=== PATIENT | male | born 1970 | race Caucasian/White ===

== ENCOUNTER 2023-05-05 08:49 | Inpatient (IN) ==
[2023-05-05] MEDS ORDERED: SODIUM CHLORIDE 0.9% 500 ML IV ONE (09:10)
--- NOTE | 2023-05-05 09:20 | Emergency Department Note ---
Impression & Plan Right arm weakness ADMIT ED Provider Note HPI: The patient is a 52-year-old male with history of hyperlipidemia, gout, who presents emergency department with chief complaint of right upper extremity weakness that is been ongoing since 3 PM yesterday. Patient states that he was using his phone yesterday at about 3 PM when he noticed that he had weakness in his hand and was having trouble using his thumb. He states he then experienced some mild weakness in his entire right upper extremity that has been constant since 3 PM yesterday. Patient states he thought it would probably go away therefore did not seek emergency medical care yesterday. On arrival here to the ED the patient is in no acute distress, he states his symptoms have not changed much at all since yesterday. He is hypertensive on arrival but otherwise hemodynamically stable. ROS: - Per HPI Differential Diagnosis: Acute ischemic stroke, neuropathy, radiculopathy, hemorrhagic stroke, hypertensive emergency, amongst other potential pathologies. *Outpatient medications and allergy history reviewed. *Pertinent external medical records reviewed. PE: General: Alert HEENT: Normocephalic, trachea midline Eyes: Extraocular eye movement is intact, no scleral erythema Pulmonary: Clear to auscultation bilaterally, no wheezing Cardio: Regular rate and rhythm GI: Abdomen is soft to palpation : No suprapubic tenderness MSK: No evidence of trauma or malformation of the extremities, no edema Skin: No evidence of rash Neuro: Alert, there is mild drift of the right upper extremity with testing against gravity, otherwise no focal deficits are noted Psychiatric: Cooperative equipment monitor phototypesetting: (As interpreted by myself): - An order was placed for continuous cardiac monitoring - Patient was noted to be in sinus rhythm with a rate of 80 EKG: (As interpreted by myself): Rate: 70 Rhythm: Normal sinus rhythm Intervals: Within normal limits ST changes: No ST elevation Time: 0859 Interventions provided in ED: -Normal saline bolus, IV labetalol, asked NIH STROKE SCALE: 1A: Level of consciousness Alert; keenly responsive 0 1B: Ask month and age Both questions right 0 1C: 'Blink eyes' & 'squeeze hands' Performs both tasks 0 2: Horizontal extraocular movements Normal 0 3: Visual donaldson No visual loss 0 4: Facial palsy Normal symmetry 0 5A: Left arm motor drift No drift for 10 seconds 0 5B: Right arm motor drift +1 6A: Left leg motor drift No drift for 5 seconds 0 6B: Right leg motor drift 0 7: Limb Ataxia No ataxia 0 8: Sensation Normal; no sensory loss 0 9: Language/aphasia Normal; no aphasia 0 10: Dysarthria Normal 0 11: Extinction/inattention No abnormality 0 TOTAL NIH SCORE =1 Medical Decision Making: Patient presented to the emergency department with right upper extremity weakness. He is outside the window for tPA. He otherwise appears to be in no acute distress but he is hypertensive on arrival. IV was established and lab work obtained, patient was placed on diagnostic cardiac sonographer. Lab work shows no leukocytosis, hemoglobin is stable, platelet count is normal, CMP does not show any critical findings, no evidence of endorgan damage, no acute kidney injury, troponin is negative. EKG reviewed by myself shows evidence of sinus rhythm with a rate of 70 without any acute ischemic changes. CT imaging of the head and CT angiography were obtained and did not show any evidence of large vessel occlusion. Patient was given a dose of IV labetalol here in the ED for hypertension that did at times go above 200 systolic, on repeat blood pressure patient's systolic pressures improved to 168. Patient tells me he does not take any medications for his blood pressure. He is given a n NIH stroke scale of 1, I feel he should be admitted for secondary work-up and MRI imaging of the brain as I do have concern his right upper extremity weakness could be secondary to an ischemic stroke. Patient is in agreement to this plan, he was given aspirin here in the ED. Case was discussed with the on-call hospitalist service for [facility], case was discussed with Adeline Pappas NP, and the patient was accepted to the inpatient service of Dr. Holder. Consultants: Hospitalist service, Dr. Holder Disposition discussion held by myself with: Patient Diagnosis: 1. Right upper extremity weakness, acute 2. Strokelike symptoms, acute 3. Hypertensive urgency, acute Disposition: Admission Addison Alas DO Emergency Medicine Past Med/Surg History Medical History Hx of gout Hx of shortness of breath "have had this since I was a kid, happens alot when i walk uphill, or exhertion" no inh. 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 Beliefs That Will Affect Care: None Current Living Situation: Spouse and Family Feels Safe at Home: Yes Assistive Devices: Glasses Allergies Allergies Allergy/AdvReac Type Severity Reaction Status Date / Time No Known Drug Allergies Allergy Verified 05/30/22 11:53 Home Meds Home Medications Medication Instructions Recorded Confirmed allopurinol 300 mg tablet 450 mg PO DAILY 05/05/23 05/05/23 indomethacin 25 mg capsule 25 mg PO BID 05/05/23 05/05/23 pravastatin 40 mg tablet 40 mg PO DAILY 05/05/23 05/05/23 Results & Data (ED) Vital Signs Vital Signs - 24 hr 05/05/23 08:53 05/05/23 09:25 05/05/23 09:17 Temperature 36.8 C Temperature Source Temporal Artery Scan Pulse Rate 78 78 77 Pulse Rate [Left Finger] Pulse Rate from SpO2 Sensor Pulse Rhythm Regular Pulse Rhythm [Left Finger] Pulse Strength [Left Finger] Respiratory Rate 20 19 Respiratory Effort / Characteristics Non-Labored Spontaneous Respiratory Depth Normal Respiratory Pattern Blood Pressure 193/117 H Blood Pressure [Left Arm] Blood Pressure Mean 142 Blood Pressure Mean [Left Arm] Blood Pressure Position [Left Arm] Pulse Oximetry 98 Oxygen Delivery Method Room Air Sepsis Recent Fever Within 48 Hours No Sepsis New/Unexplained Change in Mental Status No Sepsis Action Taken by Nursing No Action Required 05/05/23 09:20 05/05/23 09:22 05/05/23 09:22 Temperature Temperature Source Pulse Rate 73 74 Pulse Rate [Left Finger] Pulse Rate from SpO2 Sensor 73 Pulse Rhythm Pulse Rhythm [Left Finger] Pulse Strength [Left Finger] Respiratory Rate 20 16 Respiratory Effort / Characteristics Respiratory Depth Respiratory Pattern Blood Pressure 185/109 H Blood Pressure [Left Arm] Blood Pressure Mean 134 Blood Pressure Mean [Left Arm] Blood Pressure Position [Left Arm] Pulse Oximetry 97 Oxygen Delivery Method Sepsis Recent Fever Within 48 Hours Sepsis New/Unexplained Change in Mental Status Sepsis Action Taken by Nursing 05/05/23 09:30 05/05/23 10:42 05/05/23 10:46 Temperature Temperature Source Pulse Rate 75 75 Pulse Rate [Left Finger] 71 Pulse Rate from SpO2 Sensor 76 Pulse Rhythm Pulse Rhythm [Left Finger] Regular Pulse Strength [Left Finger] Normal Respiratory Rate 16 20 Respiratory Effort / Characteristics Non-Labored Spontaneous Respiratory Depth Normal Respiratory Pattern Regular Blood Pressure 210/133 H Blood Pressure [Left Arm] 210/133 H Blood Pressure Mean Blood Pressure Mean [Left Arm] 158 Blood Pressure Position [Left Arm] Sitting Pulse Oximetry 98 98 Oxygen Delivery Method Room Air Sepsis Recent Fever Within 48 Hours Sepsis New/Unexplained Change in Mental Status Sepsis Action Taken by Nursing Laboratory Data 05/05/23 09:20 05/05/23 09:20 Lab Results 05/05/23 05/05/23 05/05/23 Range/Units 09:20 09:20 09:20 WBC 6.63 (4.8-10.8) K/ul RBC 4.48 L (4.70-6.10) M/uL Hgb 14.2 (14.0-18.0) g/dl Hct 40.7 L (42.0-52.0) % MCV 90.8 (80.0-100.0) fL MCH 31.7 (25.0-34.0) pg MCHC 34.9 (32.0-36.0) g/dL RDW Std Deviation 41.3 (36.4-46.3) fL RDW Coeff of Karen 12.5 (11.5-14.5) % Plt Count 296 (130-400) K/uL MPV 8.6 L (9.4-12.4) fL Immature Gran % (Auto) 0.2 % Neut % (Auto) 54.9 % Lymph % (Auto) 32.7 % Blount % (Auto) 8.0 % Eos % (Auto) 3.3 % Baso % (Auto) 0.9 % Neut # (Auto) 3.64 (1.40-6.50) K/uL Lymph # (Auto) 2.17 (1.2-3.4) K/uL Blount # (Auto) 0.53 (0.11-0.59) K/uL Eos # (Auto) 0.22 (0-0.50) K/uL Baso # (Auto) 0.06 (0-0.2) K/uL Immature Gran # (Auto) 0.01 (0.01-0.20) K/uL PT 10.2 (9.0-12.0) Seconds INR 0.9 (0.9-1.1) APTT 27.6 (21.0-31.0) Seconds PTT Ratio 1.0 Sodium 140 (136-145) mmol/L Potassium 4.3 (3.5-5.1) mmol/L Chloride 105 (98-107) mmol/L Carbon Dioxide 28 (21-32) mmol/L Anion Gap 7 (3-11) BUN 9 (6-23) mg/dl Creatinine 0.91 (0.6-1.4) mg/dl Est Cr Clr Drug Dosing 122.0 ml/min Est GFR ( Amer) 110.3 ml/min Est GFR (Non-Af Amer) 95.2 ml/min BUN/Creatinine Ratio 9.9 L (10-20) Glucose 145 H (70-99(Fasting)) mg/dl Calcium 9.5 (8.6-10.3) mg/dl Magnesium 2.1 (1.7-2.4) mg/dl Total Bilirubin 0.3 (0.2-1.0) mg/dl AST 16 (13-39) U/L ALT 19 (7-52) U/L Alkaline Phosphatase 74 (34-104) U/L Troponin I High Sens 6.2 (0-20) pg/ml Total Protein 7.3 (6.0-8.3) gm/dl Albumin 4.1 (3.4-5.0) gm/dl Globulin 3.2 (2.5-4.0) gm/dl Albumin/Globulin Ratio 1.3 (0.9-2) Administered Medications Discontinued Medications Sodium Chloride (Nss) 500 mls @ 999 mls/hr IV .Q31M ONE Stop: 05/05/23 09:40 Last Infusion: 05/05/23 10:55 Dose: 0 mls/hr Documented By: Admin: 05/05/23 09:24 Dose: 999 mls/hr Documented By: SERA Ioversol (Ioversol 350 Mg 125ml Prefilled Syringe) 119 ml IV ONCE ONE Stop: 05/05/23 10:12 Last Admin: 05/05/23 10:11 Dose: 119 ml Documented By: NENA Labetalol HCl (Labetalol Hcl Iv 5 Mg/Ml 20ml) 10 mg IV NOW STA Stop: 05/05/23 10:45 Last Admin: 05/05/23 10:46 Dose: 10 mg Documented By: SERA Co-signed By: LOUIE Imaging Data Radiologist's Impression: Head CT 05/05/23 09:[address] OF THE BRAIN; CT ANGIOGRAM OF THE BRAIN; CT ANGIOGRAM OF THE NECK CLINICAL HISTORY: Neurological deficit. Stroke like symptoms. COMPARISON STUDY: No priors. TECHNIQUE: Unenhanced axial CT scan of the brain is performed. Subsequently, following the IV administration of 119 of Optiray 350, CT angiogram of the head and neck was performed from the aortic arch to the vertex. Images are reviewed in the axial, sagittal, and coronal planes. 3-D MIPS images are created and assessed. IV contrast was administered without complication. All measurements were calculated based on NASCET criteria. A dose lowering technique was utilized adhering to the principles of ALARA. CT DOSE: 1177.28 mGy.cm FINDINGS: Brain parenchyma: There is minimal microangiopathic change. There is no hemorrh age, mass effect, or evidence of acute territorial ischemia by CT criteria. There is no evidence of enhancing mass lesion on the angiogram phase images. The ventricles, sulci, and cisterns are normal in configuration. Peoples-white matter differentiation is preserved. No extra-axial fluid collection is seen. Thoracic aorta: Visualized portions of the thoracic aorta are normal in caliber. The aortic arch demonstrates standard 3-vessel anatomy. Right carotid arterial system: The right common carotid artery is widely patent, as are the right internal and external carotid artery. Mild calcified plaque is seen in the carotid bulb. Left carotid arterial system: The left common carotid artery is widely patent, as are the left internal and external carotid arteries. Mild calcified plaque is seen in the carotid bulb. Vertebral arteries: The vertebral arteries are widely patent bilaterally and co dominant. The right vertebral artery is diminutive. Subclavian arteries: Widely patent bilaterally. Intracranial vasculature: The internal carotid arteries are patent at the skull base, as are the anterior and middle cerebral arteries bilaterally. The vertebrobasilar system and posterior cerebral arteries are widely patent. The left vertebral artery is dominant. There is no aneurysm, high-grade stenosis, or focal vessel cut off seen throughout the intracranial circulation. Jugular veins: Patent bilaterally. Dural sinuses: Patent. Lung apices: Partially visualized upper lobe lung parenchyma appears clear. Soft tissues: The visualized pharyngeal soft tissues are normal in appearance noting angiographic phase technique. The oropharyngeal airway appears widely patent. The salivary and thyroid glands are normal in appearance. No cervical lymphadenopathy is seen. Skeletal structures: The calvarium appears intact. The cervical spine is within normal limits. Orbits: The bony orbits are intact. Orbital contents are normal as visualized. Sinuses and mastoids: The paranasal sinuses are clear. The mastoid air cells are well pneumatized. Dentition: There are numerous dental caries. A large periapical lucency is seen involving a left mandibular molar with overlying cortical breakthrough. IMPRESSION: 1. There is no hemorrhage, mass effect, or evidence of acute territorial ischemia by CT criteria. 2. Unremarkable CT angiogram of the brain. 3. Unremarkable CT angiogram of the neck. 4. Periodontal disease as above. Follow-up with dentistry is recommended. ACT 112: Negative or not required by law. Electronically signed by: Callum Samaniego M.D. 05/05/2023 10:25 AM Head CTA 05/05/23 09:[address] OF THE BRAIN; CT ANGIOGRAM OF THE BRAIN; CT ANGIOGRAM OF THE NECK CLINICAL HISTORY: Neurological deficit. Stroke like symptoms. COMPARISON STUDY: No priors. TECHNIQUE: Unenhanced axial CT scan of the brain is performed. Subsequently, fo llowing the IV administration of 119 of Optiray 350, CT angiogram of the head and neck was performed from the aortic arch to the vertex. Images are reviewed in the axial, sagittal, and coronal planes. 3-D MIPS images are created and assessed. IV contrast was administered without complication. All measurements were calculated based on NASCET criteria. A dose lowering technique was utilized adhering to the principles of ALARA. CT DOSE: 1177.28 mGy.cm FINDINGS: Brain parenchyma: There is minimal microangiopathic change. There is no hemorrhage, mass effect, or evidence of acute territorial ischemia by CT criteria. There is no evidence of enhancing mass lesion on the angiogram phase images. The ventricles, sulci, and cisterns are normal in configuration. Peoples- white matter differentiation is preserved. No extra-axial fluid collection is seen. Thoracic aorta: Visualized portions of the thoracic aorta are normal in caliber. The aortic arch demonstrates standard 3-vessel anatomy. Right carotid arterial system: The right common carotid artery is widely patent, as are the right internal and external carotid artery. Mild calcified plaque is seen in the carotid bulb. Left carotid arterial system: The left common carotid artery is widely patent, as are the left internal and external carotid arteries. Mild calcified plaque is seen in the carotid bulb. Vertebral arteries: The vertebral arteries are widely patent bilaterally and codominant. The right vertebral artery is diminutive. Subclavian arteries: Widely patent bilaterally. Intracranial vasculature: The internal carotid arteries are patent at the skull base, as are the anterior and middle cerebral arteries bilaterally. The vertebrobasilar system and posterior cerebral arteries are widely patent. The left vertebral artery is dominant. There is no aneurysm, high-grade stenosis, or focal vessel cut off seen throughout the intracranial circulation. Jugular veins: Patent bilaterally. Dural sinuses: Patent. Lung apices: Partially visualized upper lobe lung parenchyma appears clear. Soft tissues: The visualized pharyngeal soft tissues are normal in appearance noting angiographic phase technique. The oropharyngeal airway appears widely patent. The salivary and thyroid glands are normal in appearance. No cervical lymphadenopathy is seen. Skeletal structures: The calvarium appears intact. The cervical spine is within normal limits. Orbits: The bony orbits are intact. Orbital contents are normal as visualized. Sinuses and mastoids: The paranasal sinuses are clear. The mastoid air cells are well pneumatized. Dentition: There are numerous dental caries. A large periapical lucency is seen involving a left mandibular molar with overlying cortical breakthrough. IMPRESSION: 1. There is no hemorrhage, mass effect, or evidence of acute territorial ischemia by CT criteria. 2. Unremarkable CT angiogram of the brain. 3. Unremarkable CT angiogram of the neck. 4. Periodontal disease as above. Follow-up with dentistry is recommended. ACT 112: Negative or not required by law. Electronically signed by: Callum Samaniego M.D. 05/05/2023 10:25 AM Neck CTA 05/05/23 09:[address] OF THE BRAIN; CT ANGIOGRAM OF THE BRAIN; CT ANGIOGRAM OF THE NECK CLINICAL HISTORY: Neurological deficit. Stroke like symptoms. COMPARISON STUDY: No priors. TECHNIQUE: Unenhanced axial CT scan of the brain is performed. Subsequently, following the IV administration of 119 of Optiray 350, CT angiogram of the head and neck was performed from the aortic arch to the vertex. Images are reviewed in the axial, sagittal, and coronal planes. 3-D MIPS images are created and assessed. IV contrast was administered without complication. All measurements were calculated based on NASCET criteria. A dose lowering technique was utilized adhering to the principles of ALARA. CT DOSE: 1177.28 mGy.cm FINDINGS: Brain parenchyma: There is minimal microangiopathic change. There is no hemorrhage, mass effect, or evidence of acute territorial ischemia by CT criteria. There is no evidence of enhancing mass lesion on the angiogram phase images. The ventricles, sulci, and cisterns are normal in configuration. Peoples- white matter differentiation is preserved. No extra-axial fluid collection is seen. Thoracic aorta: Visualized portions of the thoracic aorta are normal in caliber. The aortic arch demonstrates standard 3-vessel anatomy. Right carotid arterial system: The right common carotid artery is widely patent, as are the right internal and external carotid artery. Mild calcified plaque is seen in the carotid bulb. Left carotid arterial system: The left common carotid artery is widely patent, as are the left internal and external carotid arteries. Mild calcified plaque is seen in the carotid bulb. Vertebral arteries: The vertebral arteries are widely patent bilaterally and codominant. The right vertebral artery is diminutive. Subclavian arteries: Widely patent bilaterally. Intracranial vasculature: The internal carotid arteries are patent at the skull base, as are the anterior and middle cerebral arteries bilaterally. The vertebrobasilar system and posterior cerebral arteries are widely patent. The left vertebral artery is dominant. There is no aneurysm, high-grade stenosis, or focal vessel cut off seen throughout the intracranial circulation. Jugular veins: Patent bilaterally. Dural sinuses: Patent. Lung apices: Partially visualized upper lobe lung parenchyma appears clear. Soft tissues: The visualized pharyngeal soft tissues are normal in appearance noting angiographic phase technique. The oropharyngeal airway appears widely patent. The salivary and thyroid glands are normal in appearance. No cervical lymphadenopathy is seen. Skeletal structures: The calvarium appears intact. The cervical spine is within normal limits. Orbits: The bony orbits are intact. Orbital contents are normal as visualized. Sinuses and mastoids: The paranasal sinuses are clear. The mastoid air cells are well pneumatized. Dentition: There are numerous dental caries. A large periapical lucency is seen involving a left mandibular molar with overlying cortical breakthrough. IMPRESSION: 1. There is no hemorrhage, mass effect, or evidence of acute territorial ischemia by CT criteria. 2. Unremarkable CT angiogram of the brain. 3. Unremarkable CT angiogram of the neck. 4. Periodontal disease as above. Follow-up with dentistry is recommended. ACT 112: Negative or not required by law. Electronically signed by: Callum Samaniego M.D. 05/05/2023 10:25 AM Discharge Plan Visit Data Chief Complaint: Arm Pain Stated Complaint: RIGHT ARM IS NMB FROM SHOULDER TO FINGERS ED Provider: Addison Alas Discharge Problem: Right arm weakness Forms Stand Alone Forms: [facility] Prescriptions Prescriptions: No Action pravastatin 40 mg tablet 40 mg PO DAILY indomethacin 25 mg capsule 25 mg PO BID allopurinol 300 mg tablet 450 mg PO DAILY Referrals Referrals: Anshu Coleman MD [Primary Care Provider] -
[2023-05-05 09:36] LABS: Basophils # (auto) 0.06 K/uL (0-0.2); Basophils % (auto) 0.9 %; Eosinophils # (auto) 0.22 K/uL (0-0.50); Eosinophils % (auto) 3.3 %; Hematocrit (blood only) 40.7 % (42.0-52.0); Hemoglobin 14.2 g/dl (14.0-18.0); Immature Granulocytes # (auto) 0.01 K/uL (0.01-0.20); Immature Granulocytes % (auto) 0.2 %; Lymphocytes # (auto) 2.17 K/uL (1.2-3.4); Lymphocytes % (auto) 32.7 %; Mean Corpuscular Hemoglobin 31.7 pg (25.0-34.0); Mean Corpuscular Hgb Conc 34.9 g/dL (32.0-36.0); Mean Corpuscular Volume 90.8 fL (80.0-100.0); Mean Platelet Volume 8.6 fL (9.4-12.4); Monocytes # (auto) 0.53 K/uL (0.11-0.59); Neutrophils # (auto) 3.64 K/uL (1.40-6.50); Neutrophils % (auto) 54.9 %; Platelet Count 296 K/uL (130-400); RDW Coefficient of Variation 12.5 % (11.5-14.5); RDW Standard Deviation 41.3 fL (36.4-46.3); Red Blood Count 4.48 M/uL (4.70-6.10); White Blood Count 6.63 K/ul (4.8-10.8)
[2023-05-05 09:47] LABS: INR 0.9 (0.9-1.1); Partial Thromboplastin Time 27.6 Seconds (21.0-31.0); Prothrombin Time 10.2 Seconds (9.0-12.0)
[2023-05-05 09:52] LABS: Albumin Level 4.1 gm/dl (3.4-5.0); Bilirubin,Total 0.3 mg/dl (0.2-1.0); Calcium 9.5 mg/dl (8.6-10.3); Magnesium 2.1 mg/dl (1.7-2.4); Potassium 4.3 mmol/L (3.5-5.1)
[2023-05-05 09:58] LABS: Albumin Globulin Ratio 1.3 (0.9-2); BUN Creatinine Ratio 9.9 (10-20); Est GFR (African American) 110.3 ml/min; Est GFR (Non-African American) 95.2 ml/min; Globulin 3.2 gm/dl (2.5-4.0); Total Protein 7.3 gm/dl (6.0-8.3)
[2023-05-05 10:01] LABS: Troponin I High Sensitivity 6.2 pg/ml (0-20)
[2023-05-05] MEDS ORDERED: IOVERSOL 350 MG 125mL Prefilled Syringe IV ONE (10:11)
--- NOTE | 2023-05-05 10:27 | CT Scan Report ---
UNENHANCED CT OF THE BRAIN; CT ANGIOGRAM OF THE BRAIN; CT ANGIOGRAM OF THE NECK CLINICAL HISTORY: Neurological deficit. Stroke like symptoms. COMPARISON STUDY: No priors. TECHNIQUE: Unenhanced axial CT scan of the brain is performed. Subsequently, following the IV adminis tration of 119 of Optiray 350, CT angiogram of the head and neck was performed from the aortic arch t o the vertex. Images are reviewed in the axial, sagittal, and coronal planes. 3-D MIPS images are cre ated and assessed. IV contrast was administered without complication. All measurements were calculate d based on NASCET criteria. A dose lowering technique was utilized adhering to the principles of ALA RA. CT DOSE: 1177.28 mGy.cm FINDINGS: Brain parenchyma: There is minimal microangiopathic change. There is no hemorrhage, mass effect, or e vidence of acute territorial ischemia by CT criteria. There is no evidence of enhancing mass lesion o n the angiogram phase images. The ventricles, sulci, and cisterns are normal in configuration. Peoples-w osito matter differentiation is preserved. No extra-axial fluid collection is seen. Thoracic aorta: Visualized portions of the thoracic aorta are normal in caliber. The aortic arch demo nstrates standard 3-vessel anatomy. Right carotid arterial system: The right common carotid artery is widely patent, as are the right int ernal and external carotid artery. Mild calcified plaque is seen in the carotid bulb. Left carotid arterial system: The left common carotid artery is widely patent, as are the left cisco certified internetwork expert al and external carotid arteries. Mild calcified plaque is seen in the carotid bulb. Vertebral arteries: The vertebral arteries are widely patent bilaterally and codominant. The right ve rtebral artery is diminutive. Subclavian arteries: Widely patent bilaterally. Intracranial vasculature: The internal carotid arteries are patent at the skull base, as are the ante rior and middle cerebral arteries bilaterally. The vertebrobasilar system and posterior cerebral gabbie ivonne are widely patent. The left vertebral artery is dominant. There is no aneurysm, high-grade steno sis, or focal vessel cut off seen throughout the intracranial circulation. Jugular veins: Patent bilaterally. Dural sinuses: Patent. Lung apices: Partially visualized upper lobe lung parenchyma appears clear. Soft tissues: The visualized pharyngeal soft tissues are normal in appearance noting angiographic pha se technique. The oropharyngeal airway appears widely patent. The salivary and thyroid glands are nor mal in appearance. No cervical lymphadenopathy is seen. Skeletal structures: The calvarium appears intact. The cervical spine is within normal limits. Orbits: The bony orbits are intact. Orbital contents are normal as visualized. Sinuses and mastoids: The paranasal sinuses are clear. The mastoid air cells are well pneumatized. Dentition: There are numerous dental caries. A large periapical lucency is seen involving a left lisette ibular molar with overlying cortical breakthrough. IMPRESSION: 1. There is no hemorrhage, mass effect, or evidence of acute territorial ischemia by CT criteria. 2. Unremarkable CT angiogram of the brain. 3. Unremarkable CT angiogram of the neck. 4. Periodontal disease as above. Follow-up with dentistry is recommended. ACT 112: Negative or not required by law. Electronically signed by: Callum Samaniego M.D. 05/05/2023 10:25 AM
[2023-05-05] MEDS ORDERED: LABETALOL HCL IV 5 MG/ML 20ML IV STA ×2 (10:44→15:04)
[2023-05-05] MEDS ORDERED: ASPIRIN CHEW 324 MG PO STA (10:52)
--- NOTE | 2023-05-05 11:44 | History & Physical Report ---
Date of Service May 05, 2023 Assessment & Plan (1) Right arm weakness: Plan: Acute as of 3pm yesterday and still persists, MRI to rule out stroke. No other neurologic deficit is present. It is difficult to tell if the elevated blood pressure caused this or if he had a stroke followed by a natural rise in BP. See plan below. Given ASA 324mg in the ER, load with plavix and lipitor now, also. Appreciate neurology consultation. Educated patient on stroke risk mitigation today. (2) Hypertensive urgency: Plan: Per outpatient record review, BP is 140/90 on average. He appears to run along the border of needing antihypertensive therapy at baseline. He was educated on salt restriction, limiting tobacco and caffeine products as ways to lose weight. Diet and exercise to lose weight are also recommended for this and overall better health. Treated wtih labetalol in the ER today. BP improved from 210/133 to 168/110. In the setting of possible acute stroke, will allow permissive hypertension. However, if MRI brain is negative, will likely add an antihypertension medication such as HCTZ or and ACEI or ARB for goal <140/90. (3) Heart murmur: Plan: New on exam per patient. Per outpatient record review he underwent a stress echo in 2019 for shortness of breath on exertion and chest tightness. This was negative for inducible ischemia and restring study did reveal concentric LV thickness, mild MR and mild aortic valve sclerosis. EF was 60-64% and diastolic function was normal at that time. Will repeat resting echo at this time. (4) Morbid obesity: Plan: elevates risks for health problems, lifestyle changes are recommended for goal BMI<30. (5) Tobacco use: Plan: Chews tobacco and in contemplative phase. We discussed alternatives as noted above. (6) Gout: Plan: chronic, stable. Patient has been noncompliant with allopurinol therapy. He is reportedly on 450mg daily. Will start back at 300mg daily and continue this at discharge with PCP follow-up to see if a higher dose is actually needed. He has been restricting alcohol which helps from a diet standpoint to decrease flares. Also, he was educated to avoid consistent use of Indomethacin as this may have side effects with chronic use and increase his blood pressure. Margaret Full Code Dispo-to PCU. I discussed the assessment and plan with the patient and his who was at bedside on admission today and all questions were answered to their satisfaction. I spent a total [id number] coordinating, documenting, and providing care for this patient excluding time spent in the performance of separately billed services Beverly Holder DO [facility] Hospitalist History of Present Illness Chief Complaint: right arm weakness Primary Care Provider: Anshu Coleman MD 52 yo M with acute right upper extremity weakness and numbness that began acutely around 3pm yesterday after a trip to [facility]. This has been constant overnight without any changes-no exacerbating or alleviating factors-reports weakness is worse this morning. Reports tried to use his thumb on his phone and was unable to do this prompting ER visit. No other stroke symptoms. No headaches, visual changes. No issues wtih swallowing. Chewed tobacco lifelong, not interested in quitting, but we did review the deleterious effects of nicotine, jaspal with respect to hypertension and replacements on the market. He is a nonsmoker with very little alcohol use and reports no recreational drug use. He works as a long distance otr truck driver. He denies caffeine intake consistently, but will have times where he binges caffeine such as last Thursday when he reports taking in 10 cups of coffee in one day. He does regularly drink tea, approx 6 cups per day, but denies other supplements, energy drinks or sodas. ROS reveals occasional blood in stool and this has been evaluated with a colonoscopy. He reports a h/o gout and has not been taking allopurinol for two months, but does take indomethacin 25mg at least once daily. Denies other NSAIDs use. Patient is not on antihypertensive therapy at baseline. Reports his BP is typically elevated and he has to sit for a few minutes to have it ret aken so that it is within range when he gets his physical. Denies excessive daytime fatigue, denies headaches upon awakening and feels he gets high quality sleep feeling rested upon awakening. Allergies Allergy/AdvReac Type Severity Reaction Status Date / Time No Known Drug Allergies Allergy Verified 05/30/22 11:53 Home Medications Medication Instructions Recorded Confirmed Type allopurinol 300 mg tablet 450 mg PO DAILY 05/05/23 05/05/23 History indomethacin 25 mg capsule 25 mg PO BID 05/05/23 05/05/23 History pravastatin 40 mg tablet 40 mg PO DAILY 08/08/23 08/08/23 History Past Med/Surg History Medical History Hx of gout Hx of shortness of breath "have had this since I was a kid, happens alot when i walk uphill, or exhertion" no inh. Hyperlipidemia Morbid obesity Tobacco use Surgical History Hx of wisdom tooth extraction Family History Mother Asthma Social History Smoking Status: Never smoker Second Hand Exposure: No; Do You Dip or Chew Tobacco: Yes (advised); Hx Alcohol Use: Yes Hx Substance Use: No Preferred Language: Citizen Of [place] Communication Ability: Effective Low Heel Builder Required: No Beliefs That Will Affect Care: None Current Living Situation: Spouse and Family Feels Safe at Home: Yes Assistive Devices: Glasses Review of Systems Review of Systems: all systems were reviewed and negative except as indicated on HPI above. Physical Exam Physical Exam: CONSTITUTIONAL: morbid obesity, vitals as above, generally well-appearing, NAD EYES: EOMI bilaterally, PERRL, normal conjunctivae, no scleral icterus, funduscopic exam is normal ENT: external ear and nose normal, oropharynx clear NECK: trachea midline RESPIRATORY: clear to auscultation bilaterally, no crackles, rales or wheezes, normal respiratory effort CARDIOVASCULAR: regular rate and rhythm, 3/6 RUCHI in LUSB, no gallops or rubs, no JVD, no peripheral edema CHEST: inspection of chest was normal GASTROINTESTINAL: soft, nontender, ND, no guarding MUSCULOSKELETAL: 4/5 triceps/biceps extension on right arm, cannot perform finger spread, decreased research chemist strength R>L hand, 5/5 strength in all other e xtremities and he was able to sit up independently, head is normocephalic and atraumatic SKIN: warm and dry NEUROLOGIC: CN 2-12 grossly intact, no sensory deficit, normal cognition, normal speech, no tremor PSYCHIATRIC: alert cooperative and oriented to person, place and time. Euthymic mood, makes good eye contact, language grossly intact, recent and remote memory grossly intact. Results & Data Results & Data Vital Signs (Past 12 Hours) Vital Signs Temp Pulse Pulse Resp BP BP Pulse Ox 05/05/23 11:00 84 18 168/110 H 98 05/05/23 10:46 75 210/133 H 05/05/23 10:42 71 20 210/133 H 98 05/05/23 09:30 75 16 98 05/05/23 09:22 185/109 H 05/05/23 09:22 74 16 97 05/05/23 09:20 73 20 05/05/23 09:17 77 19 05/05/23 09:25 78 05/05/23 08:53 36.8 C 78 20 193/117 H 98 O2 Del Method 05/05/23 11:00 05/05/23 10:46 05/05/23 10:42 Room Air 05/05/23 09:30 05/05/23 09:22 05/05/23 09:22 05/05/23 09:20 05/05/23 09:17 05/05/23 09:25 05/05/23 08:53 Room Air Laboratory Results Short CBC 05/05/23 Range/Units 09:20 WBC 6.63 (4.8-10.8) K/ul Hgb 14.2 (14.0-18.0) g/dl Hct 40.7 L (42.0-52.0) % Plt Count 296 (130-400) K/uL BMP 05/05/23 09:20 Sodium 140 Potassium 4.3 Chloride 105 Carbon Dioxide 28 BUN 9 Creatinine 0.91 Glucose 145 H Calcium 9.5 Liver Function 05/05/23 Range/Units 09:20 Total Bilirubin 0.3 (0.2-1.0) mg/dl AST 16 (13-39) U/L ALT 19 (7-52) U/L Alkaline Phosphatase 74 (34-104) U/L Albumin 4.1 (3.4-5.0) gm/dl Diagnostic Findings Head CT 05/05/23 09:[address] OF THE BRAIN; CT ANGIOGRAM OF THE BRAIN; CT ANGIOGRAM OF THE NECK CLINICAL HISTORY: Neurological deficit. Stroke like symptoms. COMPARISON STUDY: No priors. TECHNIQUE: Unenhanced axial CT scan of the brain is performed. Subsequently, following the IV administration of 119 of Optiray 350, CT angiogram of the head and neck was performed from the aortic arch to the vertex. Images are reviewed in the axial, sagittal, and coronal planes. 3-D MIPS images are created and assessed. IV contrast was administered without complication. All measurements were calculated based on NASCET criteria. A dose lowering technique was utilized adhering to the principles of ALARA. CT DOSE: 1177.28 mGy.cm FINDINGS: Brain parenchyma: There is minimal microangiopathic change. There is no hemorrhage, mass effect, or evidence of acute territorial ischemia by CT criteria. There is no evidence of enhancing mass lesion on the angiogram phase images. The ventricles, sulci, and cisterns are normal in configuration. Peoples- white matter differentiation is preserved. No extra-axial fluid collection is seen. Thoracic aorta: Visualized portions of the thoracic aorta are normal in caliber. The aortic arch demonstrates standard 3-vessel anatomy. Right carotid arterial system: The right common carotid artery is widely patent, as are the right internal and external carotid artery. Mild calcified plaque is seen in the carotid bulb. Left carotid arterial system: The left common carotid artery is widely patent, as are the left internal and external carotid arteries. Mild calcified plaque is seen in the carotid bulb. Vertebral arteries: The vertebral arteries are widely patent bilaterally and codominant. The right vertebral artery is diminutive. Subclavian arteries: Widely patent bilaterally. Intracranial vasculature: The internal carotid arteries are patent at the skull base, as are the anterior and middle cerebral arteries bilaterally. The vertebrobasilar system and posterior cerebral arteries are widely patent. The left vertebral artery is dominant. There is no aneurysm, high-grade stenosis, or focal vessel cut off seen throughout the intracranial circulation. Jugular veins: Patent bilaterally. Dural sinuses: Patent. Lung apices: Partially visualized upper lobe lung parenchyma appears clear. Soft tissues: The visualized pharyngeal soft tissues are normal in appearance noting angiographic phase technique. The oropharyngeal airway appears widely patent. The salivary and thyroid glands are normal in appearance. No cervical lymphadenopathy is seen. Skeletal structures: The calvarium appears intact. The cervical spine is within normal limits. Orbits: The bony orbits are intact. Orbital contents are normal as visualized. Sinuses and mastoids: The paranasal sinuses are clear. The mastoid air cells are well pneumatized. Dentition: There are numerous dental caries. A large periapical lucency is seen involving a left mandibular molar with overlying cortical breakthrough. IMPRESSION: 1. There is no hemorrhage, mass effect, or evidence of acute territorial ischemia by CT criteria. 2. Unremarkable CT angiogram of the brain. 3. Unremarkable CT angiogram of the neck. 4. Periodontal disease as above. Follow-up with dentistry is recommended. ACT 112: Negative or not required by law. Electronically signed by: Callum Samaniego M.D. 05/05/2023 10:25 AM Head CTA 05/05/23 09:[address] OF THE BRAIN; CT ANGIOGRAM OF THE BRAIN; CT ANGIOGRAM OF THE NECK CLINICAL HISTORY: Neurological deficit. Stroke like symptoms. COMPARISON STUDY: No priors. TECHNIQUE: Unenhanced axial CT scan of the brain is performed. Subsequently, following the IV administration of 119 of Optiray 350, CT angiogram of the head and neck was performed from the aortic arch to the vertex. Images are reviewed in the axial, sagittal, and coronal planes. 3-D MIPS images are created and assessed. IV contrast was administered without complication. All measurements were calculated based on NASCET criteria. A dose lowering technique was utilized adhering to the principles of ALARA. CT DOSE: 1177.28 mGy.cm FINDINGS: Brain parenchyma: There is minimal microangiopathic change. There is no hemorrhage, mass effect, or evidence of acute territorial ischemia by CT crite katelin. There is no evidence of enhancing mass lesion on the angiogram phase images. The ventricles, sulci, and cisterns are normal in configuration. Peoples- white matter differentiation is preserved. No extra-axial fluid collection is seen. Thoracic aorta: Visualized portions of the thoracic aorta are normal in caliber. The aortic arch demonstrates standard 3-vessel anatomy. Right carotid arterial system: The right common carotid artery is widely patent, as are the right internal and external carotid artery. Mild calcified plaque is seen in the carotid bulb. Left carotid arterial system: The left common carotid artery is widely patent, as are the left internal and external carotid arteries. Mild calcified plaque is seen in the carotid bulb. Vertebral arteries: The vertebral arteries are widely patent bilaterally and codominant. The right vertebral artery is diminutive. Subclavian arteries: Widely patent bilaterally. Intracranial vasculature: The internal carotid arteries are patent at the skull base, as are the anterior and middle cerebral arteries bilaterally. The vertebrobasilar system and posterior cerebral arteries are widely patent. The left vertebral artery is dominant. There is no aneurysm, high-grade stenosis, or focal vessel cut off seen throughout the intracranial circulation. Jugular veins: Patent bilaterally. Dural sinuses: Patent. Lung apices: Partially visualized upper lobe lung parenchyma appears clear. Soft tissues: The visualized pharyngeal soft tissues are normal in appearance noting angiographic phase technique. The oropharyngeal airway appears widely patent. The salivary and thyroid glands are normal in appearance. No cervical lymphadenopathy is seen. Skeletal structures: The calvarium appears intact. The cervical spine is within normal limits. Orbits: The bony orbits are intact. Orbital contents are normal as visualized. Sinuses and mastoids: The paranasal sinuses are clear. The mastoid air cells are well pneumatized. Dentition: There are numerous dental caries. A large periapical lucency is seen involving a left mandibular molar with overlying cortical breakthrough. IMPRESSION: 1. There is no hemorrhage, mass effect, or evidence of acute territorial ischemia by CT criteria. 2. Unremarkable CT angiogram of the brain. 3. Unremarkable CT angiogram of the neck. 4. Periodontal disease as above. Follow-up with dentistry is recommended. ACT 112: Negative or not required by law. Electronically signed by: Callum Samaniego M.D. 05/05/2023 10:25 AM Neck CTA 05/05/23 09:[address] OF THE BRAIN; CT ANGIOGRAM OF THE BRAIN; CT ANGIOGRAM OF THE NECK CLINICAL HISTORY: Neurological deficit. Stroke like symptoms. COMPARISON STUDY: No priors. TECHNIQUE: Unenhanced axial CT scan of the brain is performed. Subsequently, following the IV administration of 119 of Optiray 350, CT angiogram of the head and neck was performed from the aortic arch to the vertex. Images are reviewed in the axial, sagittal, and coronal planes. 3-D MIPS images are created and assessed. IV contrast was administered without complication. All measurements were calculated based on NASCET criteria. A dose lowering technique was utilized adhering to the principles of ALARA. CT DOSE: 1177.28 mGy.cm FINDINGS: Brain parenchyma: There is minimal microangiopathic change. There is no hemorrhage, mass effect, or evidence of acute territorial ischemia by CT criteria. There is no evidence of enhancing mass lesion on the angiogram phase images. The ventricles, sulci, and cisterns are normal in configuration. Peoples- white matter differentiation is preserved. No extra-axial fluid collection is seen. Thoracic aorta: Visualized portions of the thoracic aorta are normal in caliber. The aortic arch demonstrates standard 3-vessel anatomy. Right carotid arterial system: The right common carotid artery is widely patent, as are the right internal and external carotid artery. Mild calcified plaque is seen in the carotid bulb. Left carotid arterial system: The left common carotid artery is widely patent, as are the left internal and external carotid arteries. Mild calcified plaque is seen in the carotid bulb. Vertebral arteries: The vertebral arteries are widely patent bilaterally and codominant. The right vertebral artery is diminutive. Subclavian arteries: Widely patent bilaterally. Intracranial vasculature: The internal carotid arteries are patent at the skull base, as are the anterior and middle cerebral arteries bilaterally. The vertebrobasilar system and posterior cerebral arteries are widely patent. The left vertebral artery is dominant. There is no aneurysm, high-grade stenosis, or focal vessel cut off seen throughout the intracranial circulation. Jugular veins: Patent bilaterally. Dural sinuses: Patent. Lung apices: Partially visualized upper lobe lung parenchyma appears clear. Soft tissues: The visualized pharyngeal soft tissues are normal in appearance noting angiographic phase technique. The oropharyngeal airway appears widely patent. The salivary and thyroid glands are normal in appearance. No cervical lymphadenopathy is seen. Skeletal structures: The calvarium appears intact. The cervical spine is within normal limits. Orbits: The bony orbits are intact. Orbital contents are normal as visualized. Sinuses and mastoids: The paranasal sinuses are clear. The mastoid air cells are well pneumatized. Dentition: There are numerous dental caries. A large periapical lucency is seen involving a left mandibular molar with overlying cortical breakthrough. IMPRESSION: 1. There is no hemorrhage, mass effect, or evidence of acute territorial ischemia by CT criteria. 2. Unremarkable CT angiogram of the brain. 3. Unremarkable CT angiogram of the neck. 4. Periodontal disease as above. Follow-up with dentistry is recommended. ACT 112: Negative or not required by law. Electronically signed by: Callum Samaniego M.D. 05/05/2023 10:25 AM Code Status & VTE Plan VTE Prophylaxis Plan VTE Prophylaxis will be ordered: Yes
--- NOTE | 2023-05-05 12:06 | Electrocardiogram Report ---
Test Reason : Blood Pressure : / mmHG Vent. Rate : 070 BPM Atrial Rate : 070 BPM P-R Int : 174 ms QRS Dur : 090 ms QT Int : 374 ms P-R-T Axes : 036 -08 053 degrees QTc Int : 403 ms Normal sinus rhythm Normal ECG No previous ECGs available Confirmed by Bernardo Carranza ([id number]) on 05/05/2023 12:06:07 PM Referred By: REFERRED SELF Confirmed By:Emmanuel Carranza
[2023-05-05] MEDS ORDERED: ACETAMINOPHEN 325 MG TAB PO PRN (13:36)
[2023-05-05] MEDS ORDERED: PHARMACIST DISCHARGE MED REC CONSULT PRN (13:36)
[2023-05-05] MEDS ORDERED: CLOPIDOGREL BISULFATE 300 MG TAB PO ONE (13:36)
[2023-05-05] MEDS ORDERED: POLYETHYLENE (MIRALAX) 17 GM PACK PO PRN (13:36)
[2023-05-05] MEDS ORDERED: ALUMINUM/MAGNESIUM SUSP 30 ML UDC PO PRN (13:36)
[2023-05-05] MEDS: ATORVASTATIN 40 MG TAB PO SCH (13:57)
--- NOTE | 2023-05-05 20:12 | Magnetic Resonance Report ---
MRI OF THE BRAIN WITHOUT IV CONTRAST CLINICAL HISTORY: Strokelike symptoms. COMPARISON STUDY: CT of the brain dated 05/05/2023. TECHNIQUE: MRI of the brain was performed utilizing various T1 and T2-weighted sequences in the axial , sagittal, and coronal planes. IV contrast was not administered for this examination. FINDINGS: Brain parenchyma: There is a 1.6 cm focus of restricted diffusion identified in the left posterior pe riventricular white matter consistent with an acute to subacute lacunar infarct. No additional foci o f restricted diffusion are identified. There is no hemorrhage or mass effect. No extra-axial fluid co llection is seen. There is age-related involutional change noting mild subcortical and periventricula r microangiopathic disease. The cerebellar tonsils are normal in configuration. Ventricles, sulci, and cisterns: Normal in configuration. Pituitary and sella: Unremarkable. Intracranial vasculature: Normal flow voids are maintained at the skull base. Orbits: The bony orbits are grossly intact. Orbital contents are normal in appearance. Sinuses and mastoids: Clear. Calvarium: Unremarkable. Cervical cord: Partially visualized cervical spinal cord is normal in morphology and signal intensity . IMPRESSION: 1. Acute to subacute lacunar infarct in the left posterior periventricular white matter as above. 2. No additional foci of acute ischemia are identified. 3. There is no hemorrhage or mass effect. ACT 112: Negative or not required by law. Electronically signed by: Callum Samaniego M.D. 05/05/2023 8:10 PM
[2023-05-06 06:31] LABS: Hematocrit (blood only) 39.7 % (42.0-52.0); Hemoglobin 13.5 g/dl (14.0-18.0); Mean Corpuscular Volume 91.3 fL (80.0-100.0); Mean Platelet Volume 8.8 fL (9.4-12.4); Platelet Count 276 K/uL (130-400); RDW Coefficient of Variation 12.6 % (11.5-14.5); RDW Standard Deviation 41.7 fL (36.4-46.3); Red Blood Count 4.35 M/uL (4.70-6.10); White Blood Count 7.52 K/ul (4.8-10.8)
[2023-05-06 06:43] LABS: BUN Creatinine Ratio 12.2 (10-20); Calcium 9.1 mg/dl (8.6-10.3); Chol HDL Ratio 6.1 (0-5); Creatinine Clr Calc Pharmacy 122.6 ml/min; Est GFR (African American) 111.8 ml/min; Est GFR (Non-African American) 96.5 ml/min; Magnesium 2.2 mg/dl (1.7-2.4); Potassium 4.1 mmol/L (3.5-5.1)
[2023-05-06] MEDS: ATORVASTATIN 40 MG TAB PO SCH (07:59)
[2023-05-06 08:13] LABS: Estimated Average Glucose 163 mg/dl; Hemoglobin A1C 7.3 % (4.5-5.6)
[2023-05-06] MEDS ORDERED: CLOPIDOGREL BISULFATE 75 MG TAB PO SCH (09:00)
[2023-05-06] MEDS ORDERED: ASPIRIN 81 MG ECTAB PO SCH (09:00)
[2023-05-06] MEDS ORDERED: allopurinoL 300 MG TAB PO SCH (09:00)
--- NOTE | 2023-05-06 09:13 | Neurology Consultation ---
Date of Consultation May 06, 2023 Assessment & Plan (1) Lacunar stroke: Small vessel stroke in the L periventricular area causing R hand weakness secondary to risk factors including HTN and HLD. Agree with dual antiplatelet therapy for 21 days with plan to stop plavix and continue aspirin monotherapy afterward. Agree with switch from pravastatin to lipitor. Otherwise workup complete, can follow-up with neurology in 4-6 weeks. -- Continue dual antiplatelet therapy with aspirin 81 and plavix 75mg for 21 days - then aspirin 81mg daily monotherapy -- Continue atorva 40mg daily -- Would benefit from outpatient PT -- Neurology follow-up 4-6 weeks -- Please contact us with any further questions Telehealth Consultation Telehealth Information Telehealth Information: I performed this visit using a real-time telehealth connection between my location and the patients location ([facility]). After connecting through interactive tele-video, patient was identified by name and date of and/or wristband check.Patient (or authorized healthcare customer response representative) was informed that this was a telemedicine visit and it was being conducted confidentially over secure lines. My office door was closed and no one else was present in the room with me.Patient (or authorized healthcare customer response representative) provided consent to proceed with the visit, expressed an understanding of privacy and security of the telemedicine visit, and gave permission to have a hospital customer response representative in the room in order to assist with the visit and to conduct portions of the visit, as needed. I informed the pa tient (or authorized healthcare customer response representative) that I reviewed their record and presented the opportunity for them to ask any questions regarding the visit today. The patient agreed to participate. History of Present Illness Reason for Consultation: Stroke Requesting Physician: Dr. Lozada Attending Physician: Brown Lozada MD History of Present Illness Victor Manuel Benítez is a 52 yo M presenting with R arm weakness that began acutely yesterday. No history of stroke in the past. Today he reports that his hand was better when he woke up but has fluctuated and is now weak again. No new symptoms. No numbness, vision changes, speech changes, headache or leg involvement. He was not taking aspirin at home. Allergies Allergy/AdvReac Type Severity Reaction Status Date / Time No Known Drug Allergies Allergy Verified 05/30/22 11:53 Home Medications Medication Instructions Recorded Confirmed Type allopurinol 300 mg tablet 450 mg PO DAILY 05/05/23 05/05/23 History indomethacin 25 mg capsule 25 mg PO BID 05/05/23 05/05/23 History pravastatin 40 mg tablet 40 mg PO DAILY 05/05/23 05/05/23 History Patient History Medical History Hx of gout Hx of shortness of breath "have had this since I was a kid, happens alot when i walk uphill, or exhertion" no inh. Hyperlipidemia Morbid obesity Tobacco use Surgical History Hx of wisdom tooth extraction Family History Mother Asthma Social History Smoking Status: Never smoker Second Hand Exposure: No; Do You Dip or Chew Tobacco: Yes; Tobacco Cessation Education Requested by Patient: No Hx Alcohol Use: No Hx Substance Use: No Preferred Language: Latvian Communication Ability: Effective Emery Grinder Required: No Beliefs That Will Affect Care: None Current Living Situation: Spouse Other Information That Helps Us Care for You: No Feels Safe at Home: Yes Safety Concerns: Feels Safe At This Time Assistive Devices: None Review of Systems +R arm weakness Physical Exam Neurological Examination: Mental Status: Awake and alert. Oriented to person, place, and time. Fluent. Comprehension intact. Affect appropriate. Cranial Nerves: II: pupils 3/3 to 2/2 III/IV/: Versions intact without nystagmus V: Facial sensation symmetric to light touch VII: Facial expression symmetric VIII: Hearing intact to voice IX/X: Palate elevates symmetrically Motor: Strength was symmetric and antigravity throughout. R hand extensor weakness. Sensory: Sensation to light touch was intact. Coordination: No dysmetria beyond weakness Reflexes: Unable to assess over telemedicine Results & Data Vital Signs (Past 12 Hours) Vital Signs Temp Pulse Pulse Resp BP Pulse Ox O2 Del Method 05/06/23 08:26 36.8 C 76 20 151/81 H 94 Room Air 05/06/23 03:44 36.7 C 75 16 179/103 H 97 Room Air 05/06/23 01:00 71 05/05/23 23:11 36.6 C 69 20 145/86 H 97 Room Air Laboratory Results Abnormal lab results 05/05/23 05/05/23 05/06/23 Range/Units 09:20 09:20 05:34 RBC 4.48 L 4.35 L (4.70-6.10) M/uL Hgb 13.5 L (14.0-18.0) g/dl Hct 40.7 L 39.7 L (42.0-52.0) % MPV 8.6 L 8.8 L (9.4-12.4) fL BUN/Creatinine Ratio 9.9 L (10-20) Glucose 145 H (70-99(Fasting)) mg/dl Hemoglobin A1c (4.5-5.6) % Triglycerides (0-150) mg/dl Cholesterol (0-200) mg/dl VLDL Cholesterol, Calc (0-30) mg/dl Cholesterol/HDL Ratio (0-5) 05/06/23 05/06/23 Range/Units 05:34 05:34 RBC (4.70-6.10) M/uL Hgb (14.0-18.0) g/dl Hct (42.0-52.0) % MPV (9.4-12.4) fL BUN/Creatinine Ratio (10-20) Glucose 136 H (70-99(Fasting)) mg/dl Hemoglobin A1c 7.3 H (4.5-5.6) % Triglycerides 200 H (0-150) mg/dl Cholesterol 201 H (0-200) mg/dl VLDL Cholesterol, Calc 40 H (0-30) mg/dl Cholesterol/HDL Ratio 6.1 H (0-5) Diagnostic Findings Head CT 05/05/23 09:[address] OF THE BRAIN; CT ANGIOGRAM OF THE BRAIN; CT ANGIOGRAM OF THE NECK CLINICAL HISTORY: Neurological deficit. Stroke like symptoms. COMPARISON STUDY: No priors. TECHNIQUE: Unenhanced axial CT scan of the brain is performed. Subsequently, following the IV administration of 119 of Optiray 350, CT angiogram of the head and neck was performed from the aortic arch to the vertex. Images are reviewed in the axial, sagittal, and coronal planes. 3-D MIPS images are created and assessed. IV contrast was administered without complication. All measurements were calculated based on NASCET criteria. A dose lowering technique was utilized adhering to the principles of ALARA. CT DOSE: 1177.28 mGy.cm FINDINGS: Brain parenchyma: There is minimal microangiopathic change. There is no hemorrhage, mass effect, or evidence of acute territorial ischemia by CT criteria. There is no evidence of enhancing mass lesion on the angiogram phase images. The ventricles, sulci, and cisterns are normal in configuration. Peoples- white matter differentiation is preserved. No extra-axial fluid collection is seen. Thoracic aorta: Visualized portions of the thoracic aorta are normal in caliber. The aortic arch demonstrates standard 3-vessel anatomy. Right carotid arterial system: The right common carotid artery is widely patent, as are the right internal and external carotid artery. Mild calcified plaque is seen in the carotid bulb. Left carotid arterial system: The left common carotid artery is widely patent, as are the left internal and external carotid arteries. Mild calcified plaque is seen in the carotid bulb. Vertebral arteries: The vertebral arteries are widely patent bilaterally and codominant. The right vertebral artery is diminutive. Subclavian arteries: Widely patent bilaterally. Intracranial vasculature: The internal carotid arteries are patent at the skull base, as are the anterior and middle cerebral arteries bilaterally. The vertebrobasilar system and posterior cerebral arteries are widely patent. The left vertebral artery is dominant. There is no aneurysm, high-grade stenosis, or focal vessel cut off seen throughout the intracranial circulation. Jugular veins: Patent bilaterally. Dural sinuses: Patent. Lung apices: Partially visualized upper lobe lung parenchyma appears clear. Soft tissues: The visualized pharyngeal soft tissues are normal in appearance noting angiographic phase technique. The oropharyngeal airway appears widely patent. The salivary and thyroid glands are normal in appearance. No cervical lymphadenopathy is seen. Skeletal structures: The calvarium appears intact. The cervical spine is within normal limits. Orbits: The bony orbits are intact. Orbital contents are normal as visualized. Sinuses and mastoids: The paranasal sinuses are clear. The mastoid air cells are well pneumatized. Dentition: There are numerous dental caries. A large periapical lucency is seen involving a left mandibular molar with overlying cortical breakthrough. IMPRESSION: 1. There is no hemorrhage, mass effect, or evidence of acute territorial ischemia by CT criteria. 2. Unremarkable CT angiogram of the brain. 3. Unremarkable CT angiogram of the neck. 4. Periodontal disease as above. Follow-up with dentistry is recommended. ACT 112: Negative or not required by law. Electronically signed by: Callum Samaniego M.D. 05/05/2023 10:25 AM Head CTA 05/05/23 09:[address] OF THE BRAIN; CT ANGIOGRAM OF THE BRAIN; CT ANGIOGRAM OF THE NECK CLINICAL HISTORY: Neurological deficit. Stroke like symptoms. COMPARISON STUDY: No priors. TECHNIQUE: Unenhanced axial CT scan of the brain is performed. Subsequently, following the IV administration of 119 of Optiray 350, CT angiogram of the head and neck was performed from the aortic arch to the vertex. Images are reviewed in the axial, sagittal, and coronal planes. 3-D MIPS images are created and assessed. IV contrast was administered without complication. All measurements were calculated based on NASCET criteria. A dose lowering technique was utilized adhering to the principles of ALARA. CT DOSE: 1177.28 mGy.cm FINDINGS: Brain parenchyma: There is minimal microangiopathic change. There is no hemorrhage, mass effect, or evidence of acute territorial ischemia by CT criteria. There is no evidence of enhancing mass lesion on the angiogram phase images. The ventricles, sulci, and cisterns are normal in configuration. Peoples- white matter differentiation is preserved. No extra-axial fluid collection is seen. Thoracic aorta: Visualized portions of the thoracic aorta are normal in caliber. The aortic arch demonstrates standard 3-vessel anatomy. Right carotid arterial system: The right common carotid artery is widely patent, as are the right internal and external carotid artery. Mild calcified plaque is seen in the carotid bulb. Left carotid arterial system: The left common carotid artery is widely patent, as are the left internal and external carotid arteries. Mild calcified plaque is seen in the carotid bulb. Vertebral arteries: The vertebral arteries are widely patent bilaterally and codominant. The right vertebral artery is diminutive. Subclavian arteries: Widely patent bilaterally. Intracranial vasculature: The internal carotid arteries are patent at the skull base, as are the anterior and middle cerebral arteries bilaterally. The vertebrobasilar system and posterior cerebral arteries are widely patent. The left vertebral artery is dominant. There is no aneurysm, high-grade stenosis, or focal vessel cut off seen throughout the intracranial circulation. Jugular veins: Patent bilaterally. Dural sinuses: Patent. Lung apices: Partially visualized upper lobe lung parenchyma appears clear. Soft tissues: The visualized pharyngeal soft tissues are normal in appearance noting angiographic phase technique. The oropharyngeal airway appears widely patent. The salivary and thyroid glands are normal in appearance. No cervical lymphadenopathy is seen. Skeletal structures: The calvarium appears intact. The cervical spine is within normal limits. Orbits: The bony orbits are intact. Orbital contents are normal as visualized. Sinuses and mastoids: The paranasal sinuses are clear. The mastoid air cells are well pneumatized. Dentition: There are numerous dental caries. A large periapical lucency is seen involving a left mandibular molar with overlying cortical breakthrough. IMPRESSION: 1. There is no hemorrhage, mass effect, or evidence of acute territorial ischemia by CT criteria. 2. Unremarkable CT angiogram of the brain. 3. Unremarkable CT angiogram of the neck. 4. Periodontal disease as above. Follow-up with dentistry is recommended. ACT 112: Negative or not required by law. Electronically signed by: Callum Samaniego M.D. 05/05/2023 10:25 AM Neck CTA 05/05/23 09:[address] OF THE BRAIN; CT ANGIOGRAM OF THE BRAIN; CT ANGIOGRAM OF THE NECK CLINICAL HISTORY: Neurological deficit. Stroke like symptoms. COMPARISON STUDY: No priors. TECHNIQUE: Unenhanced axial CT scan of the brain is performed. Subsequently, following the IV administration of 119 of Optiray 350, CT angiogram of the head and neck was performed from the aortic arch to the vertex. Images are reviewed in the axial, sagittal, and coronal planes. 3-D MIPS images are created and assessed. IV contrast was administered without complication. All measurements were calculated based on NASCET criteria. A dose lowering technique was utilized adhering to the principles of ALARA. CT DOSE: 1177.28 mGy.cm FINDINGS: Brain parenchyma: There is minimal microangiopathic change. There is no hem orrhage, mass effect, or evidence of acute territorial ischemia by CT criteria. There is no evidence of enhancing mass lesion on the angiogram phase images. The ventricles, sulci, and cisterns are normal in configuration. Peoples-white matter differentiation is preserved. No extra-axial fluid collection is seen. Thoracic aorta: Visualized portions of the thoracic aorta are normal in caliber. The aortic arch demonstrates standard 3-vessel anatomy. Right carotid arterial system: The right common carotid artery is widely patent, as are the right internal and external carotid artery. Mild calcified plaque is seen in the carotid bulb. Left carotid arterial system: The left common carotid artery is widely patent, as are the left internal and external carotid arteries. Mild calcified plaque is seen in the carotid bulb. Vertebral arteries: The vertebral arteries are widely patent bilaterally and codominant. The right vertebral artery is diminutive. Subclavian arteries: Widely patent bilaterally. Intracranial vasculature: The internal carotid arteries are patent at the skull base, as are the anterior and middle cerebral arteries bilaterally. The vertebrobasilar system and posterior cerebral arteries are widely patent. The left vertebral artery is dominant. There is no aneurysm, high-grade stenosis, or focal vessel cut off seen throughout the intracranial circulation. Jugular veins: Patent bilaterally. Dural sinuses: Patent. Lung apices: Partially visualized upper lobe lung parenchyma appears clear. Soft tissues: The visualized pharyngeal soft tissues are normal in appearance noting angiographic phase technique. The oropharyngeal airway appears widely patent. The salivary and thyroid glands are normal in appearance. No cervical lymphadenopathy is seen. Skeletal structures: The calvarium appears intact. The cervical spine is within normal limits. Orbits: The bony orbits are intact. Orbital contents are normal as visualized. Sinuses and mastoids: The paranasal sinuses are clear. The mastoid air cells are well pneumatized. Dentition: There are numerous dental caries. A large periapical lucency is seen involving a left mandibular molar with overlying cortical breakthrough. IMPRESSION: 1. There is no hemorrhage, mass effect, or evidence of acute territorial ischemia by CT criteria. 2. Unremarkable CT angiogram of the brain. 3. Unremarkable CT angiogram of the neck. 4. Periodontal disease as above. Follow-up with dentistry is recommended. ACT 112: Negative or not required by law. Electronically signed by: Callum Samaniego M.D. 05/05/2023 10:25 AM Brain MRI 05/05/23 12:23 MRI OF THE BRAIN WITHOUT IV CONTRAST CLINICAL HISTORY: Strokelike symptoms. COMPARISON STUDY: CT of the brain dated 05/05/2023. TECHNIQUE: MRI of the brain was performed utilizing various T1 and T2-weighted sequences in the axial, sagittal, and coronal planes. IV contrast was not administered for this examination. FINDINGS: Brain parenchyma: There is a 1.6 cm focus of restricted diffusion identified in the left posterior periventricular white matter consistent with an acute to subacute lacunar infarct. No additional foci of restricted diffusion are identified. There is no hemorrhage or mass effect. No extra-axial fluid collection is seen. There is age-related involutional change noting mild subcortical and periventricular microangiopathic disease. The cerebellar tonsils are normal in configuration. Ventricles, sulci, and cisterns: Normal in configuration. Pituitary and sella: Unremarkable. Intracranial vasculature: Normal flow voids are maintained at the skull base. Orbits: The bony orbits are grossly intact. Orbital contents are normal in appearance. Sinuses and mastoids: Clear. Calvarium: Unremarkable. Cervical cord: Partially visualized cervical spinal cord is normal in morphology and signal intensity. IMPRESSION: 1. Acute to subacute lacunar infarct in the left posterior periventricular white matter as above. 2. No additional foci of acute ischemia are identified. 3. There is no hemorrhage or mass effect. ACT 112: Negative or not required by law. Electronically signed by: Callum Samaniego M.D. 05/05/2023 8:10 PM
[2023-05-06] MEDS ORDERED: DEXTROSE 50% 50 ML SYRINGE IV PRN (11:15)
[2023-05-06] MEDS ORDERED: GLUCAGON FOR INJ 1 MG VIAL SQ PRN (11:15)
[2023-05-06] MEDS ORDERED: GLUCOSE 40% GEL 15 GM TUBE PO PRN (11:15)
[2023-05-06] MEDS ORDERED: GLUCOSE 10 TAB/TUBE PO PRN (11:15)
[2023-05-06] MEDS ORDERED: CARBOHYDRATES FOR HYPOGLYCEMIA PO PRN (11:15)
[2023-05-06] MEDS ORDERED: INSULIN ASPART PER UNIT CHARGE SC SCH (11:30)
--- NOTE | 2023-05-06 13:09 | Pharmacy Report ---
- Date of Service May 06, 2023 - Pharmacy CVA/TIA Medication Review Medications to Prevent Stroke handout has been added to the patients discharge packet. Antiplatelet(s) * Aspirin 81 mg daily * Plavix 75 mg daily X 21 days (along with aspirin) Cholesterol * High intensity statin: atorvastatin 40 mg daily DVT Prophylaxis * SCD knee Therapeutic Anticoagulation * No history of Afib/Aflutter noted Type 2 Diabetes * Patient has T2DM, but per Dr. Lozada, a diabetes medication with proven CVD benefit will be deferred to their outpatient provider due to familiarity with risks/benefits of such therapies. "Medications to prevent stroke" handout has already been added to the patient's discharge packet, which instructs the patient to follow up with their outpatient provider to evaluate which diabetes medication with proven CVD benefit is best for them
--- NOTE | 2023-05-06 13:44 | Hospitalist Progress Note ---
Date of Service May 06, 2023 Assessment & Plan (1) Right arm weakness: Plan: Acute CVA: --MRI Brain:Acute to subacute lacunar infarct in the left posterior periventricular white matter as above. No additional foci of acute ischemia are identified. There is no hemorrhage or mass effect. --Head/Neck CTA:There is no hemorrhage, mass effect, or evidence of acute territorial ischemia by CT criteria. Unremarkable CT angiogram of the brain. Unremarkable CT angiogram of the neck. --ECHO: Mild concentric LVH. Left ventricular wall motion is normal. Left ventricle systolic function is normal. EF 65 to 70%. Aortic valve sclerosis mild, without significant aortic valvular stenosis. Mild mitral regurgitation. Grade 1 diastolic dysfunction. No ASD -- Continue dual antiplatelet therapy with aspirin 81 mg and Plavix 75 mg daily for 21 days and then transition to aspirin 81 mg daily alone Continue atorvastatin 40 mg daily Continue PT OT, speech therapy Will need follow-up with neurology in 4 to 6 weeks Appreciate neurology input Allow permissive HTN in setting of acute CVA Advised not to drive until cleared by neurology as (2) Hypertensive urgency: Plan: In setting of acute CVA Monitor BP closely Consider adding antihypertensives as needed Advised to monitor blood pressure at home regularly and discuss with PCP for medication adjustments as needed. DM II New diagnosis HbA1c 7.3 Plan to start on metformin upon discharge Counseled on dietary changes, healthy lifestyle changes (3) Heart murmur: Plan: Echo as above Consider getting ZIO monitor as outpatient (4) Morbid obesity: Plan: BMI 45.5 (5) Tobacco use: Plan: Chews tobacco and in contemplative phase. Counseled to quit (6) Gout: Plan: chronic, stable. Will restart allopurinol Advised to discontinue indomethacin for now DVT Px: Lovenox SQ Code Status Full Code Admission and Anticipated Discharge Date Admission Date: May 05, 2023 Subjective Patient is seen and examined at bedside States having right upper extremity weakness Offers no other complaints Discussed with patient's family at bedside Also discussed with neurologist on-call Review of Systems Review of Systems: All systems reviewed & are unremarkable except as noted in Subjective Physical Exam Physical Exam: Physical Exam: Vitals signs as noted above General Appearance:Morbidly Obese, no apparent distress Head: normocephalic, Atraumatic Eyes: normal inspection, EOMI Neck: supple, Trachea midline Respiratory/Chest: Normal breath sounds, CTA, No accessory muscle use Cardiovascular: S1, S2, + murmur Abdomen/GI:Soft, Non tender, Bowel sounds present Extremities/Musculoskeletal:normal inspection, 1+pedal edema Neurologic/Psych:AAOX3, RUE 3-4/5, Otherwise no focal deficits Skin: normal color, warm Results & Data Results & Data Vital Signs (Past 12 Hours) Vital Signs Temp Pulse Pulse Resp BP Pulse Ox O2 Del Method 05/06/23 12:14 36.9 C 67 20 157/89 H 97 Room Air 05/06/23 08:00 69 05/06/23 08:26 36.8 C 76 20 151/81 H 94 Room Air 05/06/23 03:44 36.7 C 75 16 179/103 H 97 Room Air Laboratory Results Short CBC 05/06/23 Range/Units 05:34 WBC 7.52 (4.8-10.8) K/ul Hgb 13.5 L (14.0-18.0) g/dl Hct 39.7 L (42.0-52.0) % Plt Count 276 (130-400) K/uL BMP 05/06/23 05:34 Sodium 141 Potassium 4.1 Chloride 104 Carbon Dioxide 30 BUN 11 Creatinine 0.90 Glucose 136 H Calcium 9.1
[2023-05-06] MEDS ORDERED: STROKE PATIENT DISCHARGE STA (14:40)
--- NOTE | 2023-05-06 14:41 | Discharge Summary ---
Date of Service May 06, 2023 Admission HPI Per Admitting Provider 52 yo M with acute right upper extremity weakness and numbness that began acutely around 3pm yesterday after a trip to [facility]. This has been constant overnight without any changes-no exacerbating or alleviating factors-reports weakness is worse this morning. Reports tried to use his thumb on his phone and was unable to do this prompting ER visit. No other stroke symptoms. No headaches, visual changes. No issues wtih swallowing. Chewed tobacco lifelong, not interested in quitting, but we did review the deleterious effects of nicotine, jaspal with respect to hypertension and replacements on the market. He is a nonsmoker with very little alcohol use and reports no recreational drug use. He works as a long distance oil truck driver. He denies caffeine intake consistently, but will have times where he binges caffeine such as last Thursday when he reports taking in 10 cups of coffee in one day. He does regularly drink tea, approx 6 cups per day, but denies other supplements, energy drinks or sodas. ROS reveals occasional blood in stool and this has been evaluated with a colonoscopy. He reports a h/o gout and has not been taking allopurinol for two months, but does take indomethacin 25mg at least once daily. Denies other NSAIDs use. Patient is not on antihypertensive therapy at baseline. Reports his BP is typically elevated and he has to sit for a few minutes to have it retaken so that it is within range when he gets his physical. Denies excessive daytime fatigue, denies headaches upon awakening and feels he gets high quality sleep feeling rested upon awakening. Admission Exam Per Admitting Provider CONSTITUTIONAL: morbid obesity, vitals as above, generally well-appearing, NAD EYES: EOMI bilaterally, PERRL, normal conjunctivae, no scleral icterus, funduscopic exam is normal ENT: external ear and nose normal, oropharynx clear NECK: trachea midline RESPIRATORY: clear to auscultation bilaterally, no crackles, rales or wheezes, normal respiratory effort CARDIOVASCULAR: regular rate and rhythm, 3/6 RUCHI in LUSB, no gallops or rubs, no JVD, no peripheral edema CHEST: inspection of chest was normal GASTROINTESTINAL: soft, nontender, ND, no guarding MUSCULOSKELETAL: 4/5 triceps/biceps extension on right arm, cannot perform finger spread, decreased import/export agent strength R>L hand, 5/5 strength in all other extr emities and he was able to sit up independently, head is normocephalic and atraumatic SKIN: warm and dry NEUROLOGIC: CN 2-12 grossly intact, no sensory deficit, normal cognition, normal speech, no tremor PSYCHIATRIC: alert cooperative and oriented to person, place and time. Euthymic mood, makes good eye contact, language grossly intact, recent and remote memory grossly intact. Principal Diagnosis Acute cerebrovascular accident Diabetes mellitus Type II Hypertension Discharge Data Allergies Allergy/AdvReac Type Severity Reaction Status Date / Time No Known Drug Allergies Allergy Verified 05/30/22 11:53 Consultations 05/05/23 10:44 ED Decision to Admit Stat 05/05/23 13:36 Consult Neurology Routine Procedures Performed Laboratory Results WBC 7.52 K/ul (4.8-10.8) 05/06/23 05:34 RBC 4.35 M/uL (4.70-6.10) L 05/06/23 05:34 Hgb 13.5 g/dl (14.0-18.0) L 05/06/23 05:34 Hct 39.7 % (42.0-52.0) L 05/06/23 05:34 MCV 91.3 fL (80.0-100.0) 05/06/23 05:34 MCH 31.0 pg (25.0-34.0) 05/06/23 05:34 MCHC 34.0 g/dL (32.0-36.0) 05/06/23 05:34 RDW Std Deviation 41.7 fL (36.4-46.3) 05/06/23 05:34 RDW Coeff of Karen 12.6 % (11.5-14.5) 05/06/23 05:34 Plt Count 276 K/uL (130-400) 05/06/23 05:34 MPV 8.8 fL (9.4-12.4) L 05/06/23 05:34 Immature Gran % (Auto) 0.2 % 05/05/23 09:20 Neut % (Auto) 54.9 % 05/05/23 09:20 Lymph % (Auto) 32.7 % 05/05/23 09:20 [place] % (Auto) 8.0 % 05/05/23 09:20 Eos % (Auto) 3.3 % 05/05/23 09:20 Baso % (Auto) 0.9 % 05/05/23 09:20 Neut # (Auto) 3.64 K/uL (1.40-6.50) 05/05/23 09:20 Lymph # (Auto) 2.17 K/uL (1.2-3.4) 05/05/23 09:20 [place] # (Auto) 0.53 K/uL (0.11-0.59) 05/05/23 09:20 Eos # (Auto) 0.22 K/uL (0-0.50) 05/05/23 09:20 Baso # (Auto) 0.06 K/uL (0-0.2) 05/05/23 09:20 Immature Gran # (Auto) 0.01 K/uL (0.01-0.20) 05/05/23 09:20 PT 10.2 Seconds (9.0-12.0) 05/05/23 09:20 INR 0.9 (0.9-1.1) 05/05/23 09:20 APTT 27.6 Seconds (21.0-31.0) 05/05/23 09:20 PTT Ratio 1.0 05/05/23 09:20 Sodium 141 mmol/L (136-145) 05/06/23 05:34 Potassium 4.1 mmol/L (3.5-5.1) 05/06/23 05:34 Chloride 104 mmol/L (98-107) 05/06/23 05:34 Carbon Dioxide 30 mmol/L (21-32) 05/06/23 05:34 Anion Gap 7 (3-11) 05/06/23 05:34 BUN 11 mg/dl (6-23) 05/06/23 05:34 Creatinine 0.90 mg/dl (0.6-1.4) 05/06/23 05:34 Est Cr Clr Drug Dosing 122.6 ml/min 05/06/23 05:34 Est GFR ( Amer) 111.8 ml/min 05/06/23 05:34 Est GFR (Non-Af Amer) 96.5 ml/min 05/06/23 05:34 BUN/Creatinine Ratio 12.2 (10-20) 05/06/23 05:34 Glucose 136 mg/dl (70-99(Fasting)) H 05/06/23 05:34 Estimat Average Glucose 163 mg/dl 05/06/23 05:34 Hemoglobin A1c 7.3 % (4.5-5.6) H 05/06/23 05:34 Calcium 9.1 mg/dl (8.6-10.3) 05/06/23 05:34 Magnesium 2.2 mg/dl (1.7-2.4) 05/06/23 05:34 Total Bilirubin 0.3 mg/dl (0.2-1.0) 05/05/23 09:20 AST 16 U/L (13-39) 05/05/23 09:20 ALT 19 U/L (7-52) 05/05/23 09:20 Alkaline Phosphatase 74 U/L (34-104) 05/05/23 09:20 Troponin I High Sens 6.2 pg/ml (0-20) 05/05/23 09:20 Total Protein 7.3 gm/dl (6.0-8.3) 05/05/23 09:20 Albumin 4.1 gm/dl (3.4-5.0) 05/05/23 09:20 Globulin 3.2 gm/dl (2.5-4.0) 05/05/23 09:20 Albumin/Globulin Ratio 1.3 (0.9-2) 05/05/23 09:20 Triglycerides 200 mg/dl (0-150) H 05/06/23 05:34 Cholesterol 201 mg/dl (0-200) H 05/06/23 05:34 LDL Cholesterol, Calc 128 mg/dl 05/06/23 05:34 VLDL Cholesterol, Calc 40 mg/dl (0-30) H 05/06/23 05:34 HDL Cholesterol 33 mg/dl 05/06/23 05:34 Cholesterol/HDL Ratio 6.1 (0-5) H 05/06/23 05:[address] 05/05/23 09:[address] OF THE BRAIN; CT ANGIOGRAM OF THE BRAIN; CT ANGIOGRAM OF THE NECK CLINICAL HISTORY: Neurological deficit. Stroke like symptoms. COMPARISON STUDY: No priors. TECHNIQUE: Unenhanced axial CT scan of the brain is performed. Subsequently, following the IV administration of 119 of Optiray 350, CT angiogram of the head and neck was performed from the aortic arch to the vertex. Images are reviewed in the axial, sagittal, and coronal planes. 3-D MIPS images are created and assessed. IV contrast was administered without complication. All measurements were calculated based on NASCET criteria. A dose lowering technique was utilized adhering to the principles of ALARA. CT DOSE: 1177.28 mGy.cm FINDINGS: Brain parenchyma: There is minimal microangiopathic change. There is no hemorrhage, mass effect, or evidence of acute territorial ischemia by CT criteria. There is no evidence of enhancing mass lesion on the angiogram phase images. The ventricles, sulci, and cisterns are normal in configuration. Peoples- white matter differentiation is preserved. No extra-axial fluid collection is seen. Thoracic aorta: Visualized portions of the thoracic aorta are normal in caliber. The aortic arch demonstrates standard 3-vessel anatomy. Right carotid arterial system: The right common carotid artery is widely patent, as are the right internal and external carotid artery. Mild calcified plaque is seen in the carotid bulb. Left carotid arterial system: The left common carotid artery is widely patent, as are the left internal and external carotid arteries. Mild calcified plaque is seen in the carotid bulb. Vertebral arteries: The vertebral arteries are widely patent bilaterally and codominant. The right vertebral artery is diminutive. Subclavian arteries: Widely patent bilaterally. Intracranial vasculature: The internal carotid arteries are patent at the skull base, as are the anterior and middle cerebral arteries bilaterally. The ve rtebrobasilar system and posterior cerebral arteries are widely patent. The left vertebral artery is dominant. There is no aneurysm, high-grade stenosis, or focal vessel cut off seen throughout the intracranial circulation. Jugular veins: Patent bilaterally. Dural sinuses: Patent. Lung apices: Partially visualized upper lobe lung parenchyma appears clear. Soft tissues: The visualized pharyngeal soft tissues are normal in appearance noting angiographic phase technique. The oropharyngeal airway appears widely patent. The salivary and thyroid glands are normal in appearance. No cervical l ymphadenopathy is seen. Skeletal structures: The calvarium appears intact. The cervical spine is within normal limits. Orbits: The bony orbits are intact. Orbital contents are normal as visualized. Sinuses and mastoids: The paranasal sinuses are clear. The mastoid air cells are well pneumatized. Dentition: There are numerous dental caries. A large periapical lucency is seen involving a left mandibular molar with overlying cortical breakthrough. IMPRESSION: 1. There is no hemorrhage, mass effect, or evidence of acute territorial ischemia by CT criteria. 2. Unremarkable CT angiogram of the brain. 3. Unremarkable CT angiogram of the neck. 4. Periodontal disease as above. Follow-up with dentistry is recommended. ACT 112: Negative or not required by law. Electronically signed by: Callum Samaniego M.D. 05/05/2023 10:25 AM Head CTA 05/05/23 09:[address] OF THE BRAIN; CT ANGIOGRAM OF THE BRAIN; CT ANGIOGRAM OF THE NECK CLINICAL HISTORY: Neurological deficit. Stroke like symptoms. COMPARISON STUDY: No priors. TECHNIQUE: Unenhanced axial CT scan of the brain is performed. Subsequently, following the IV administration of 119 of Optiray 350, CT angiogram of the head and neck was performed from the aortic arch to the vertex. Images are reviewed in the axial, sagittal, and coronal planes. 3-D MIPS images are created and assessed. IV contrast was administered without complication. All measurements were calculated based on NASCET criteria. A dose lowering technique was utilized adhering to the principles of ALARA. CT DOSE: 1177.28 mGy.cm FINDINGS: Brain parenchyma: There is minimal microangiopathic change. There is no hemorrhage, mass effect, or evidence of acute territorial ischemia by CT criteria. There is no evidence of enhancing mass lesion on the angiogram phase images. The ventricles, sulci, and cisterns are normal in configuration. Peoples- white matter differentiation is preserved. No extra-axial fluid collection is seen. Thoracic aorta: Visualized portions of the thoracic aorta are normal in caliber. The aortic arch demonstrates standard 3-vessel anatomy. Right carotid arterial system: The right common carotid artery is widely patent, as are the right internal and external carotid artery. Mild calcified plaque is seen in the carotid bulb. Left carotid arterial system: The left common carotid artery is widely patent, as are the left internal and external carotid arteries. Mild calcified plaque is seen in the carotid bulb. Vertebral arteries: The vertebral arteries are widely patent bilaterally and codominant. The right vertebral artery is diminutive. Subclavian arteries: Widely patent bilaterally. Intracranial vasculature: The internal carotid arteries are patent at the skull base, as are the anterior and middle cerebral arteries bilaterally. The vertebrobasilar system and posterior cerebral arteries are widely patent. The left vertebral artery is dominant. There is no aneurysm, high-grade stenosis, or focal vessel cut off seen throughout the intracranial circulation. Jugular veins: Patent bilaterally. Dural sinuses: Patent. Lung apices: Partially visualized upper lobe lung parenchyma appears clear. Soft tissues: The visualized pharyngeal soft tissues are normal in appearance noting angiographic phase technique. The oropharyngeal airway appears widely p atent. The salivary and thyroid glands are normal in appearance. No cervical lymphadenopathy is seen. Skeletal structures: The calvarium appears intact. The cervical spine is within normal limits. Orbits: The bony orbits are intact. Orbital contents are normal as visualized. Sinuses and mastoids: The paranasal sinuses are clear. The mastoid air cells are well pneumatized. Dentition: There are numerous dental caries. A large periapical lucency is seen involving a left mandibular molar with overlying cortical breakthrough. IMPRESSION: 1. There is no hemorrhage, mass effect, or evidence of acute territorial ischemia by CT criteria. 2. Unremarkable CT angiogram of the brain. 3. Unremarkable CT angiogram of the neck. 4. Periodontal disease as above. Follow-up with dentistry is recommended. ACT 112: Negative or not required by law. Electronically signed by: Callum Samaniego M.D. 05/05/2023 10:25 AM Neck CTA 05/05/23 09:[address] OF THE BRAIN; CT ANGIOGRAM OF THE BRAIN; CT ANGIOGRAM OF THE NECK CLINICAL HISTORY: Neurological deficit. Stroke like symptoms. COMPARISON STUDY: No priors. TECHNIQUE: Unenhanced axial CT scan of the brain is performed. Subsequently, following the IV administration of 119 of Optiray 350, CT angiogram of the head and neck was performed from the aortic arch to the vertex. Images are reviewed in the axial, sagittal, and coronal planes. 3-D MIPS images are created and assessed. IV contrast was administered without complication. All measurements were calculated based on NASCET criteria. A dose lowering technique was utilized adhering to the principles of ALARA. CT DOSE: 1177.28 mGy.cm FINDINGS: Brain parenchyma: There is minimal microangiopathic change. There is no hemorrhage, mass effect, or evidence of acute territorial ischemia by CT criteria. There is no evidence of enhancing mass lesion on the angiogram phase images. The ventricles, sulci, and cisterns are normal in configuration. Peoples- white matter differentiation is preserved. No extra-axial fluid collection is seen. Thoracic aorta: Visualized portions of the thoracic aorta are normal in caliber. The aortic arch demonstrates standard 3-vessel anatomy. Right carotid arterial system: The right common carotid artery is widely patent, as are the right internal and external carotid artery. Mild calcified plaque is seen in the carotid bulb. Left carotid arterial system: The left common carotid artery is widely patent, as are the left internal and external carotid arteries. Mild calcified plaque is seen in the carotid bulb. Vertebral arteries: The vertebral arteries are widely patent bilaterally and codominant. The right vertebral artery is diminutive. Subclavian arteries: Widely patent bilaterally. Intracranial vasculature: The internal carotid arteries are patent at the skull base, as are the anterior and middle cerebral arteries bilaterally. The vertebrobasilar system and posterior cerebral arteries are widely patent. The left vertebral artery is dominant. There is no aneurysm, high-grade stenosis, or focal vessel cut off seen throughout the intracranial circulation. Jugular veins: Patent bilaterally. Dural sinuses: Patent. Lung apices: Partially visualized upper lobe lung parenchyma appears clear. Soft tissues: The visualized pharyngeal soft tissues are normal in appearance noting angiographic phase technique. The oropharyngeal airway appears widely patent. The salivary and thyroid glands are normal in appearance. No cervical lymphadenopathy is seen. Skeletal structures: The calvarium appears intact. The cervical spine is within normal limits. Orbits: The bony orbits are intact. Orbital contents are normal as visualized. Sinuses and mastoids: The paranasal sinuses are clear. The mastoid air cells are well pneumatized. Dentition: There are numerous dental caries. A large periapical lucency is seen involving a left mandibular molar with overlying cortical breakthrough. IMPRESSION: 1. There is no hemorrhage, mass effect, or evidence of acute territorial ischemia by CT criteria. 2. Unremarkable CT angiogram of the brain. 3. Unremarkable CT angiogram of the neck. 4. Periodontal disease as above. Follow-up with dentistry is recommended. ACT 112: Negative or not required by law. Electronically signed by: Callum Samaniego M.D. 05/05/2023 10:25 AM Brain MRI 05/05/23 12:23 MRI OF THE BRAIN WITHOUT IV CONTRAST CLINICAL HISTORY: Strokelike symptoms. COMPARISON STUDY: CT of the brain dated 05/05/2023. TECHNIQUE: MRI of the brain was performed utilizing various T1 and T2-weighted sequences in the axial, sagittal, and coronal planes. IV contrast was not administered for this examination. FINDINGS: Brain parenchyma: There is a 1.6 cm focus of restricted diffusion identified in the left posterior periventricular white matter consistent with an acute to subacute lacunar infarct. No additional foci of restricted diffusion are identified. There is no hemorrhage or mass effect. No extra-axial fluid collection is seen. There is age-related involutional change noting mild subcortical and periventricular microangiopathic disease. The cerebellar tonsils are normal in configuration. Ventricles, sulci, and cisterns: Normal in configuration. Pituitary and sella: Unremarkable. Intracranial vasculature: Normal flow voids are maintained at the skull base. Orbits: The bony orbits are grossly intact. Orbital contents are normal in appearance. Sinuses and mastoids: Clear. Calvarium: Unremarkable. Cervical cord: Partially visualized cervical spinal cord is normal in morphology and signal intensity. IMPRESSION: 1. Acute to subacute lacunar infarct in the left posterior periventricular white matter as above. 2. No additional foci of acute ischemia are identified. 3. There is no hemorrhage or mass effect. ACT 112: Negative or not required by law. Electronically signed by: Callum Samaniego M.D. 05/05/2023 8:10 PM Ordered Studies 05/05/23 09:10 CT angio head w con Stat CT angio neck with con Stat CT head/brain wo con Stat 05/05/23 12:23 MR brain wo con Routine Diabetes Follow up Diabetes Follow-up Needed for Newly Diagnosed Diabetes Hospital Course (1) Right arm weakness: Acute CVA: --MRI Brain:Acute to subacute lacunar infarct in the left posterior periventricular white matter as above. No additional foci of acute ischemia are identified. There is no hemorrhage or mass effect. --Head/Neck CTA:There is no hemorrhage, mass effect, or evidence of acute territorial ischemia by CT criteria. Unremarkable CT angiogram of the brain. Unremarkable CT angiogram of the neck. --ECHO: Mild concentric LVH. Left ventricular wall motion is normal. Left ventricle systolic function is normal. EF 65 to 70%. Aortic valve sclerosis mild, without significant aortic valvular stenosis. Mild mitral regurgitation. Grade 1 diastolic dysfunction. No ASD -- Continue dual antiplatelet therapy with aspirin 81 mg and Plavix 75 mg daily for 21 days and then transition to aspirin 81 mg daily alone Continue atorvastatin 40 mg daily Continue PT OT, speech therapy Will need follow-up with neurology in 4 to 6 weeks Appreciate neurology input Allow permissive HTN in setting of acute CVA Advised not to drive until cleared by neurology as (2) Hypertensive urgency: In setting of acute CVA Monitor BP closely Consider adding antihypertensives as needed Advised to monitor blood pressure at home regularly and discuss with PCP for medication adjustments as needed. DM II New diagnosis HbA1c 7.3 Plan to start on metformin upon discharge Counseled on dietary changes, healthy lifestyle changes (3) Heart murmur: Echo as above Consider getting ZIO monitor as outpatient (4) Morbid obesity: BMI 45.5 (5) Tobacco use: Chews tobacco and in contemplative phase. Counseled to quit (6) Gout: chronic, stable. Will restart allopurinol Advised to discontinue indomethacin for now DVT Px: Lovenox SQ Code Status Full Code Total Time Total Time Spent Total Time Spent (In Minutes): 58 minutes Discharge Plan Discharge Items Patient Disposition: Home - Self-Care Reason For Visit: RIGHT ARM IS NMB FROM SHOULDER TO FINGERS Discharge Diagnosis: Acute cerebrovascular accident Diabetes mellitus Type II Hypertension Activity: Per Instructions section Exercise/Sports: Gradually increase as tolerated Driving/Machine Use: No driving permitted until cleared by your neurologist. Non-emergency contact: Primary Care Provider and Neurologist Call non-emergency contact if: you have any medication questions, your symptoms worsen, your pain is concerning for you and you have a fever Follow-up/Referrals: Carol Saenz PA-C [Physician Machinery Cleaner] - (Date & Time 06/08/2023 11:20 AM Provider Carol Saenz PA-C Department Neurology [facility] ) Anshu Coleman MD [Primary Care Provider] - (Date & Time 05/14/2023 3:00 PM Provider Anshu Coleman MD Department [facility] ) Diet: Carb Consistent or DM2 and Heart Healthy Addtl Attending Provider Instructions: Follow-up with your primary care physician Dr. Coleman on 05/14/2023 3:00 PM Follow-up with your neurologist Carol Saenz PA-C on 06/08/2023 11:20 AM -- Continue dual antiplatelet therapy with aspirin 81 mg and Plavix 75 mg daily for 21 days and then transition to aspirin 81 mg daily alone --Avoid indomethacin and other over the counter pain medicines while on aspirin, Plavix given increased risk for bleeding --Monitor blood pressure daily at home and discuss with your primary care physician for further adjustment of medications as needed. --No driving permitted until cleared by your neurologist. Seek immediate medical attention if your symptoms reoccur or worsen Please take all medications as instructed on discharge list below. Please call if you have any questions or problems. You can reach a [facility] hospitalist on duty at [facility] 24 hours a day by calling [phone] Risk Factors for Stroke: You can reduce your chances of stroke by working with your medical provider to adopt a healthy lifestyle. Some specific ways to lower your chance of stroke are: * If you are a smoker, now is the time to stop smoking cigarettes * If you are diabetic, improve the control of your blood sugars * Avoid excessive amounts of alcohol * Control high blood pressure * Lose weight if you are overweight * Be sure to lead an active lifestyle * Eat a healthy diet low in salt, cholesterol and fat You should know about other risk factors for stroke that you are unable to control. These include: * Age 55 years or older * Male gender * Certain racial groups: , or / * Family History of Stroke, Mini stroke or Heart Attack * Sickle Cell Disease Follow Up: It is important for you to keep your follow up appointments with your medical provider. Who to Call and When: Medical Emergencies: Call 911 immediately if you experience any of the following warning signs and symptoms of Stroke: * Sudden numbness or weakness of the face, arm or leg, especially on one side of the body * Sudden confusion, trouble speaking or understanding * Sudden trouble seeing in one or both eyes * Sudden trouble walking, dizziness, loss of balance or coordination * Sudden severe headache with no cause Do not delay calling 911 if you experience any warning signs or symptoms of a stroke. Delay in seeking medical attention may affect what treatments can be given to y ou. . Pending Studies at Discharge: No Stand-Alone Forms: My [facility], Smoking Cessation, Medications to Prevent Stroke Medications and DC Order Prescriptions: New atorvastatin 40 mg Tablet 40 mg PO QAM Qty: 30 1RF clopidogrel 75 mg Tablet 75 mg PO QAM Qty: 21 0RF aspirin 81 mg Tablet,Delayed Release (Dr/Ec) 81 mg PO DAILY Qty: 30 1RF metformin 750 mg tablet extended release 24 hr 750 mg PO DAILY Qty: 30 0RF losartan 25 mg tablet 25 mg PO DAILY Qty: 30 0RF Continued allopurinol 300 mg tablet 450 mg PO DAILY Qty: 60 1RF Discontinued pravastatin 40 mg tablet 40 mg PO DAILY indomethacin 25 mg capsule 25 mg PO BID Discharge Orders: Discharge Order (Routine); Ordered 05/06/23 Ordered By: Brown eKith/Other Patient Handouts: Exercise: Why Fitness Matters, Diabetes: Meal Planning, Type 2 Diabetes Admission Data Admit Date/Time: 05/05/23 11:05 Attending Provider: Brown Lozada Admit Provider: Beverly Holder Primary Care Provider: Anshu Coleman Other Providers: Beverly Holder ; Thomas Valenzuela
--- NOTE | 2023-05-07 10:04 | Pharmacy Report ---
Pharmacist Stroke Counseling - Date of Service May 07, 2023 - Scope: Pharmacy has been consulted to provide medication discharge counseling for this patient admitted with ischemic stroke as per the Pharmacist Discharge Counseling for Stroke Patients Protocol. - Medications on Discharge: New Rx's Medication Instructions Recorded allopurinol 300 mg tablet 450 mg PO DAILY #60 tabs 05/06/23 aspirin 81 mg tablet,delayed 81 mg PO DAILY #30 tabs 05/06/23 release atorvastatin 40 mg tablet 40 mg PO QAM #30 tabs 05/06/23 clopidogrel 75 mg tablet 75 mg PO QAM #21 tabs 05/06/23 losartan 25 mg tablet 25 mg PO DAILY #30 tabs 05/06/23 metformin 750 mg tablet,extended 750 mg PO DAILY #30 tabs 05/06/23 release 24 hr - Action: The above medications, specifically ones for stroke treatment/prophylaxis, have been reviewed in detail with the patient and/or patient advertising account representative(s) prior to discharge. This includes indication, common adverse reactions, drug interactions, and medication administration. Medication counseling has been employed using the teach-back method to ensure understanding. - Outcome: The patient and/or patient advertising account representative(s) have demonstrated understanding of the medications. Additional comments: - Patient reports that medications were picked up from pharmacy. - Patient demonstrated understanding of new medication regimen. He will take clopidogrel until the bottle is empty and then continue with aspirin daily ongoing. He is aware that atorvastatin has replaced previous pravastatin. He was instructed to stop indomethacin as well (due to increased cardiovascular risk). I instructed patient that acetaminophen (Tylenol) is likely safest [id number] medication at this time, but that he should talk to primary care doctor for unrelieved pain. Instructed patient to take metformin with largest meal of the day to decrease likelihood of upset stomach. - Patient had no further follow-up questions. Thank you for allowing pharmacy to be involved in the care of this patient. Please call [phone] with any additional questions
== END 2023-05-06 16:33 | disposition home or self-care (01) | DRG 65 ==
LOC: ED 08:49 → EDINP 11:05 → SUATTDRO 11:05 → 2E 13:36